=== PATIENT | male | born 1965 | race Two or more races ===

== ENCOUNTER 2019-10-29 08:00 | Inpatient (IN) | payer OTHER, SELFPAY ==
[2019-10-29] VITALS (7 sets, daily range): BP systolic 121–140; BP diastolic 74–95
[~2019-10-29] VITALS: Ht 160 cm; Wt 75.1 kg
[2019-10-29 08:59] LABS: Albumin 2.7 g/dL (3.4-5.0); Calcium 9.1 mg/dL (8.5-10.1); Potassium 5.3 mmol/L (3.5-5.1)
[2019-10-29] MEDS ORDERED: cefTRIAXone 1GM/50ML D5W 50 ML IV ONE (09:00)
[2019-10-29] MEDS ORDERED: AZITHROMYCIN 500MG/ 250ML 250 ML IV ONE (09:00)
[2019-10-29 09:02] LABS: BUN/Creatinine Ratio 15.6; Bilirubin, Total 0.6 mg/dL (0.2-1.0); Total Protein 8.6 g/dL (6.4-8.2)
[2019-10-29 09:14] LABS: Basophils # (auto) 0 10 ^3/uL (0-0.2); Basophils % (auto) 0.3 % (0.0-2.0); Eosinophils # (auto) 0.1 10 ^3/uL (0-0.8); Hematocrit 37.7 % (41.0-53.0); Hemoglobin 12.8 g/dL (13.5-17.5); Lymphocytes # (auto) 0.5 10 ^3/uL (0.4-5.4); Lymphocytes % (auto) 9.9 % (10.0-50.0); Mean Corpuscular Hemoglobin 29.2 pg (28.0-32.0); Mean Corpuscular Volume 86.1 fL (80.0-100.0); Monocytes # (auto) 0.4 10 ^3/uL (0-1.3); Monocytes % (auto) 8.3 % (0.0-12.0); Neutrophils # (auto) 4.3 10 ^3/uL (1.6-8.6); Neutrophils % (auto) 80.5 % (37.0-80.0); Nucleated Red Blood Cells % 0.2 %; Platelet Count (auto) 300 10^3/uL (140-450); Red Blood Cells 4.38 10^6/uL (4.5-5.90); White Blood Cell 5.3 10^3/uL (4.4-10.8)
[2019-10-29] MEDS ORDERED: ASCORBIC ACID 500 MG TAB PO ONE (09:15)
[2019-10-29] MEDS ORDERED: SODIUM CHLORIDE 0.9% 1,000 ML IV ONE (09:15)
[2019-10-29] MEDS ORDERED: ZINC SULFATE 220mg CAP or TAB PO ONE (09:15)
[2019-10-29] MEDS ORDERED: ACETAMINOPHEN 500 MG TAB PO PRN ×2 (10:00)
[2019-10-29] MEDS ORDERED: ENALAPRILAT 1.25 MG/ML-1ML VIAL IV PRN (10:00)
[2019-10-29] MEDS ORDERED: DEXTROSE (50%) 50ML SYRG IV PRN (10:00)
[2019-10-29] MEDS ORDERED: HYDROcodone-ACET 5/325MG TAB PO PRN (10:00)
[2019-10-29] MEDS ORDERED: ENOXAPARIN SOD 40 MG/0.4 ML SYRINGE SC SCH (10:00)
[2019-10-29] MEDS ORDERED: NITROGLYCERIN 0.4 MG SL TAB SL PRN (10:00)
[2019-10-29] MEDS ORDERED: SODIUM ZIRCONIUM CYCL 10 GM PAK PO ONE (10:00)
[2019-10-29] MEDS: ASCORBIC ACID 1,000 MG TAB PO SCH (10:00)
[2019-10-29] MEDS ORDERED: ONDANSETRON HCL 4 MG/2 ML VIAL IV PRN (10:00)
[2019-10-29] MEDS ORDERED: MORPHINE SULF INJ 2 MG/ML SYRINGE 1ML IV PRN ×2 (10:00)
[2019-10-29 10:19] LABS: Magnesium 2.3 mg/dL (1.6-2.6)
[2019-10-29] MEDS ORDERED: LORazepam 2MG/ML-1ML VIAL IV ONE (10:30)
[2019-10-29 10:38] LABS: CRP High Sensitivity > 19 mg/dL (< 0.3)
[2019-10-29] MEDS: CHOLECALCIFEROL (VITD3) 1,000IU=25mCg TAB PO SCH (10:40)
[2019-10-29] MEDS: FAMOTIDINE 20 MG TAB PO SCH (10:40)
[2019-10-29] MEDS: amLODIPine BESYLATE 5 MG TAB PO SCH (10:40)
[2019-10-29] MEDS: AZITHROMYCIN 500MG/ 250ML 250 ML IV SCH (11:04)
[2019-10-29] MEDS: ZINC SULFATE 220mg CAP or TAB PO SCH (11:04)
[2019-10-29] MEDS ORDERED: hydrALAZINE HCL 20 MG/ML VL IV PRN (11:15)
[2019-10-29] MEDS: ACCU-CHEK COMFORT CURVE STRIP VI SCH ×3 (11:51→22:27)
[2019-10-29] MEDS: InsuLIN REG 1unit/0.01ml Soln (100units/ml) SC SCH ×3 (11:53→22:27)
[2019-10-29 13:54] LABS: Urine Bacteria MANY /hpf (None Seen); Urine Blood Negative /uL (Negative); Urine Mucus FEW (None Seen); Urine Specific Gravity 1.011 (1.001-1.035); Urine WBC 22 /hpf (0 - 3)
[2019-10-29] MEDS ORDERED: ALBUTEROL SULF HFA 90MCG INH 200DOSE IN SCH (14:00)
[2019-10-29] MEDS ORDERED: FUROSEMIDE 40 MG/4 ML VIAL ONE (14:38)
[2019-10-29] MEDS ORDERED: FUROSEMIDE 20 MG/2 ML VIAL IV ONE (14:45)
[2019-10-29] MEDS: ALBUTEROL SULF HFA 90MCG INH 200DOSE IN SCH ×2 (15:00→22:56)
[2019-10-29] MEDS: PIPERACILLIN-TAZOB 3.375GM 100 ML IV SCH ×2 (15:11→23:44)
[2019-10-29] MEDS: FUROSEMIDE 20 MG/2 ML VIAL IV SCH (17:51)
[2019-10-29] MEDS ORDERED: TOCILIZUMAB 400 MG in SODIUM CHL 0.9% 80 ML IV ONE (19:30)
[2019-10-29] MEDS: ENOXAPARIN SOD 80 MG/0.8ML SYRINGE SC SCH (20:00)
[2019-10-29] MEDS: methylPREDNISolone SOD SUCC 40 MG/ML VL IV SCH (22:04)
[2019-10-30] VITALS (12 sets, daily range): BP systolic 116–137; BP diastolic 68–101
[2019-10-30] MEDS ORDERED: METF-371 PO (00:37)
[2019-10-30] MEDS ORDERED: VER40T PO (00:43)
[2019-10-30] MEDS ORDERED: GLIM4TAB42 PO (00:43)
[2019-10-30] MEDS ORDERED: TAMS0.4C36 PO (00:43)
[2019-10-30] MEDS ORDERED: TRAM50TA2 PO (00:43)
[2019-10-30 03:39] LABS: Basophils # (auto) 0 10 ^3/uL (0-0.2); Basophils % (auto) 0.2 % (0.0-2.0); Eosinophils # (auto) 0 10 ^3/uL (0-0.8); Eosinophils % (auto) 0.2 % (0.0-7.0); Hematocrit 34.8 % (41.0-53.0); Hemoglobin 11.8 g/dL (13.5-17.5); Lymphocytes # (auto) 0.4 10 ^3/uL (0.4-5.4); Lymphocytes % (auto) 13.3 % (10.0-50.0); Mean Corpuscular Hemoglobin 29.4 pg (28.0-32.0); Mean Corpuscular Volume 86.7 fL (80.0-100.0); Monocytes # (auto) 0.2 10 ^3/uL (0-1.3); Monocytes % (auto) 5.6 % (0.0-12.0); Neutrophils # (auto) 2.5 10 ^3/uL (1.6-8.6); Neutrophils % (auto) 80.7 % (37.0-80.0); Platelet Count (auto) 310 10^3/uL (140-450); Red Blood Cells 4.02 10^6/uL (4.5-5.90); Red Cell Distribution Width 13.7 % (11.8-14.3); White Blood Cell 3.1 10^3/uL (4.4-10.8)
[2019-10-30 03:59] LABS: Albumin 2.3 g/dL (3.4-5.0); BUN/Creatinine Ratio 19.1; Calcium 8.6 mg/dL (8.5-10.1); Potassium 4.8 mmol/L (3.5-5.1)
[2019-10-30 04:06] LABS: Bilirubin, Total 0.4 mg/dL (0.2-1.0); Total Protein 7.8 g/dL (6.4-8.2)
[2019-10-30] MEDS: FUROSEMIDE 20 MG/2 ML VIAL IV SCH (06:00)
[2019-10-30] MEDS: PIPERACILLIN-TAZOB 3.375GM 100 ML IV SCH ×3 (06:00→18:27)
[2019-10-30] MEDS: ALBUTEROL SULF HFA 90MCG INH 200DOSE IN SCH ×3 (06:35→21:38)
[2019-10-30] MEDS: ACCU-CHEK COMFORT CURVE STRIP VI SCH ×4 (06:53→22:13)
[2019-10-30] MEDS: InsuLIN REG 1unit/0.01ml Soln (100units/ml) SC SCH ×4 (06:53→22:13)
[2019-10-30] MEDS ORDERED: cefTRIAXone 1GM/50ML D5W 50 ML IV SCH (09:00)
[2019-10-30] MEDS: ENOXAPARIN SOD 80 MG/0.8ML SYRINGE SC SCH ×2 (09:32→20:13)
[2019-10-30] MEDS: ZINC SULFATE 220mg CAP or TAB PO SCH (09:33)
[2019-10-30] MEDS: FAMOTIDINE 20 MG TAB PO SCH (09:33)
[2019-10-30] MEDS: methylPREDNISolone SOD SUCC 40 MG/ML VL IV SCH ×2 (09:33→22:11)
[2019-10-30] MEDS: AZITHROMYCIN 500MG/ 250ML 250 ML IV SCH (09:33)
[2019-10-30] MEDS: amLODIPine BESYLATE 5 MG TAB PO SCH (09:33)
[2019-10-30] MEDS: CHOLECALCIFEROL (VITD3) 1,000IU=25mCg TAB PO SCH (09:34)
[2019-10-30] MEDS: ASCORBIC ACID 1,000 MG TAB PO SCH (09:34)
[2019-10-30] MEDS ORDERED: TOCILIZUMAB 400 MG IV ONE (11:30)
[2019-10-30] MEDS ORDERED: FUROSEMIDE 100 MG/10ML VIAL IV ONE (11:45)
[2019-10-30] MEDS ORDERED: POTASSIUM CHL 20 Meq TABLET PO ONE (11:45)
[2019-10-30] MEDS ORDERED: TOCILIZUMAB IV ONE (13:00)
[2019-10-30] MEDS ORDERED: SODIUM CHL 0.9% IV ONE (13:00)
[2019-10-30] MEDS: FUROSEMIDE 100 MG/10ML VIAL IV SCH (18:27)
[2019-10-30] MEDS: INSULIN LANTUS (GLARGINE) 1 /0.01ml (100units/ml) SC SCH (22:13)
[2019-10-31] VITALS (11 sets, daily range): BP systolic 119–145; BP diastolic 74–87
[2019-10-31 03:20] LABS: Basophils # (auto) 0 10 ^3/uL (0-0.2); Basophils % (auto) 0.5 % (0.0-2.0); Eosinophils # (auto) 0 10 ^3/uL (0-0.8); Hematocrit 35.5 % (41.0-53.0); Hemoglobin 12.2 g/dL (13.5-17.5); Lymphocytes # (auto) 0.5 10 ^3/uL (0.4-5.4); Lymphocytes % (auto) 7.9 % (10.0-50.0); Mean Corpuscular Hemoglobin 29.6 pg (28.0-32.0); Mean Corpuscular Hgb Conc. 34.3 g/dL (32.0-36.0); Mean Corpuscular Volume 86.3 fL (80.0-100.0); Monocytes # (auto) 0.5 10 ^3/uL (0-1.3); Monocytes % (auto) 8.1 % (0.0-12.0); Neutrophils # (auto) 5.6 10 ^3/uL (1.6-8.6); Neutrophils % (auto) 83.5 % (37.0-80.0); Nucleated Red Blood Cells % 0.1 %; Platelet Count (auto) 441 10^3/uL (140-450); Red Blood Cells 4.12 10^6/uL (4.5-5.90); Red Cell Distribution Width 13.8 % (11.8-14.3); White Blood Cell 6.7 10^3/uL (4.4-10.8)
[2019-10-31 03:35] LABS: BUN/Creatinine Ratio 26.1; Calcium 8.8 mg/dL (8.5-10.1); Potassium 4.7 mmol/L (3.5-5.1)
[2019-10-31] MEDS: PIPERACILLIN-TAZOB 3.375GM 100 ML IV SCH ×4 (05:59→18:41)
[2019-10-31] MEDS: FUROSEMIDE 100 MG/10ML VIAL IV SCH ×2 (06:00→18:41)
[2019-10-31] MEDS: InsuLIN REG 1unit/0.01ml Soln (100units/ml) SC SCH ×4 (06:00→21:11)
[2019-10-31] MEDS: ACCU-CHEK COMFORT CURVE STRIP VI SCH ×7 (06:02→21:12)
[2019-10-31] MEDS: ALBUTEROL SULF HFA 90MCG INH 200DOSE IN SCH ×3 (06:23→22:01)
[2019-10-31] MEDS: ENOXAPARIN SOD 80 MG/0.8ML SYRINGE SC SCH ×2 (08:30→20:00)
[2019-10-31] MEDS: methylPREDNISolone SOD SUCC 40 MG/ML VL IV SCH ×2 (09:35→21:10)
[2019-10-31] MEDS: AZITHROMYCIN 500MG/ 250ML 250 ML IV SCH (09:35)
[2019-10-31] MEDS: ZINC SULFATE 220mg CAP or TAB PO SCH (09:35)
[2019-10-31] MEDS: CHOLECALCIFEROL (VITD3) 1,000IU=25mCg TAB PO SCH (09:35)
[2019-10-31] MEDS: FAMOTIDINE 20 MG TAB PO SCH (09:35)
[2019-10-31] MEDS: ASCORBIC ACID 1,000 MG TAB PO SCH (09:35)
[2019-10-31] MEDS ORDERED: DEXTROSE (50%) 50ML SYRG IV PRN (11:15)
[2019-10-31] MEDS ORDERED: FUROSEMIDE 20 MG/2 ML VIAL IV ONE (11:15)
[2019-10-31] MEDS ORDERED: FUROSEMIDE 100 MG/10ML VIAL IV ONE (11:30)
[2019-10-31] MEDS: Glucerna Carbsteady SHAKE Vanilla 8oz PO SCH ×2 (12:00→18:00)
[2019-10-31] MEDS: INSULIN LANTUS (GLARGINE) 1 /0.01ml (100units/ml) SC SCH (21:10)
[2019-11-01] VITALS: BP 120/74
[2019-11-01 04:00] VITALS: BP 133/78
[2019-11-01 05:10] LABS: Potassium 4.9 mmol/L (3.5-5.1)
[2019-11-01 05:15] LABS: BUN/Creatinine Ratio 28.7
[2019-11-01] MEDS: FUROSEMIDE 100 MG/10ML VIAL IV SCH (06:00)
[2019-11-01] MEDS: PIPERACILLIN-TAZOB 3.375GM 100 ML IV SCH ×5 (06:14→22:47)
[2019-11-01] MEDS: InsuLIN REG 1unit/0.01ml Soln (100units/ml) SC SCH ×4 (06:34→22:46)
[2019-11-01] MEDS: ACCU-CHEK COMFORT CURVE STRIP VI SCH ×6 (06:46→22:27)
[2019-11-01] MEDS: ALBUTEROL SULF HFA 90MCG INH 200DOSE IN SCH ×3 (06:56→22:26)
[2019-11-01] MEDS: ENOXAPARIN SOD 80 MG/0.8ML SYRINGE SC SCH (08:00)
[2019-11-01] MEDS: Glucerna Carbsteady SHAKE Vanilla 8oz PO SCH ×3 (08:51→17:38)
[2019-11-01] MEDS: methylPREDNISolone SOD SUCC 40 MG/ML VL IV SCH ×2 (09:04→22:26)
[2019-11-01] MEDS: FLORASTOR (S. BOULARDII) 250 MG CAP PO SCH (09:05)
[2019-11-01] MEDS: ZINC SULFATE 220mg CAP or TAB PO SCH (09:05)
[2019-11-01] MEDS: FAMOTIDINE 20 MG TAB PO SCH (09:05)
[2019-11-01] MEDS: AZITHROMYCIN 500MG/ 250ML 250 ML IV SCH (09:05)
[2019-11-01] MEDS: ASCORBIC ACID 1,000 MG TAB PO SCH (09:06)
[2019-11-01] MEDS: CHOLECALCIFEROL (VITD3) 1,000IU=25mCg TAB PO SCH (09:06)
[2019-11-01 12:00] VITALS: BP 100/73
[2019-11-01 16:00] VITALS: BP 125/76
[2019-11-01 22:00] VITALS: BP 123/79
[2019-11-01] MEDS ORDERED: INSULIN LANTUS (GLARGINE) 1 /0.01ml (100units/ml) SC SCH (22:00)
[2019-11-02 06:00] VITALS: BP 113/84
[2019-11-02] MEDS: ACCU-CHEK COMFORT CURVE STRIP VI SCH ×4 (06:32→22:20)
[2019-11-02] MEDS: PIPERACILLIN-TAZOB 3.375GM 100 ML IV SCH ×3 (06:32→18:20)
[2019-11-02] MEDS: ALBUTEROL SULF HFA 90MCG INH 200DOSE IN SCH ×3 (06:32→22:20)
[2019-11-02] MEDS: InsuLIN REG 1unit/0.01ml Soln (100units/ml) SC SCH ×4 (06:53→22:31)
[2019-11-02] MEDS: Glucerna Carbsteady SHAKE Vanilla 8oz PO SCH ×3 (07:39→18:20)
[2019-11-02 08:00] VITALS: BP 122/93
[2019-11-02] MEDS: FUROSEMIDE 20 MG/2 ML VIAL IV SCH (09:27)
[2019-11-02] MEDS: methylPREDNISolone SOD SUCC 40 MG/ML VL IV SCH ×2 (09:27→22:20)
[2019-11-02] MEDS: AZITHROMYCIN 500MG/ 250ML 250 ML IV SCH (09:28)
[2019-11-02] MEDS: ENOXAPARIN SOD 40 MG/0.4 ML SYRINGE SC SCH (09:28)
[2019-11-02] MEDS: CHOLECALCIFEROL (VITD3) 1,000IU=25mCg TAB PO SCH (09:29)
[2019-11-02] MEDS: FAMOTIDINE 20 MG TAB PO SCH (09:29)
[2019-11-02] MEDS: ASCORBIC ACID 1,000 MG TAB PO SCH (09:29)
[2019-11-02] MEDS: ZINC SULFATE 220mg CAP or TAB PO SCH (09:30)
[2019-11-02] MEDS: FLORASTOR (S. BOULARDII) 250 MG CAP PO SCH (09:30)
[2019-11-02 12:00] VITALS: BP 119/86
[2019-11-02 16:59] VITALS: BP 116/77
[2019-11-02 22:00] VITALS: BP 123/77
[2019-11-02] MEDS ORDERED: INSULIN LANTUS (GLARGINE) 1 /0.01ml (100units/ml) SC SCH (22:00)
[2019-11-03] MEDS: PIPERACILLIN-TAZOB 3.375GM 100 ML IV SCH ×5 (00:17→23:49)
[2019-11-03] MEDS: ACCU-CHEK COMFORT CURVE STRIP VI SCH ×5 (06:16→23:50)
[2019-11-03] MEDS: ALBUTEROL SULF HFA 90MCG INH 200DOSE IN SCH ×3 (06:16→20:52)
[2019-11-03] MEDS: InsuLIN REG 1unit/0.01ml Soln (100units/ml) SC SCH ×4 (06:18→21:19)
[2019-11-03 07:18] LABS: Potassium 5.4 mmol/L (3.5-5.1)
[2019-11-03 07:26] LABS: Albumin 2.8 g/dL (3.4-5.0); BUN/Creatinine Ratio 31.1; Calcium 9.4 mg/dL (8.5-10.1)
[2019-11-03 07:28] LABS: Bilirubin, Total 0.3 mg/dL (0.2-1.0); Total Protein 7.8 g/dL (6.4-8.2)
[2019-11-03 08:28] VITALS: BP 106/73
[2019-11-03] MEDS: Glucerna Carbsteady SHAKE Vanilla 8oz PO SCH ×3 (10:39→18:25)
[2019-11-03] MEDS: methylPREDNISolone SOD SUCC 40 MG/ML VL IV SCH (10:39)
[2019-11-03] MEDS: ENOXAPARIN SOD 40 MG/0.4 ML SYRINGE SC SCH (10:39)
[2019-11-03] MEDS: ASCORBIC ACID 1,000 MG TAB PO SCH (10:40)
[2019-11-03] MEDS: CHOLECALCIFEROL (VITD3) 1,000IU=25mCg TAB PO SCH (10:40)
[2019-11-03] MEDS: FUROSEMIDE 20 MG/2 ML VIAL IV SCH (10:40)
[2019-11-03] MEDS: ZINC SULFATE 220mg CAP or TAB PO SCH (10:41)
[2019-11-03] MEDS: FAMOTIDINE 20 MG TAB PO SCH (10:41)
[2019-11-03] MEDS: FLORASTOR (S. BOULARDII) 250 MG CAP PO SCH (10:41)
[2019-11-03 10:53] LABS: Basophils # (auto) 0 10 ^3/uL (0-0.2); Basophils % (auto) 0.1 % (0.0-2.0); Eosinophils # (auto) 0 10 ^3/uL (0-0.8); Eosinophils % (auto) 0.2 % (0.0-7.0); Hematocrit 39.9 % (41.0-53.0); Hemoglobin 13.5 g/dL (13.5-17.5); Lymphocytes # (auto) 1.3 10 ^3/uL (0.4-5.4); Lymphocytes % (auto) 14.3 % (10.0-50.0); Mean Corpuscular Hemoglobin 29.2 pg (28.0-32.0); Mean Corpuscular Hgb Conc. 33.7 g/dL (32.0-36.0); Mean Corpuscular Volume 86.6 fL (80.0-100.0); Monocytes # (auto) 0.7 10 ^3/uL (0-1.3); Neutrophils # (auto) 6.8 10 ^3/uL (1.6-8.6); Neutrophils % (auto) 77.4 % (37.0-80.0); Nucleated Red Blood Cells % 0.1 %; Platelet Count (auto) 497 10^3/uL (140-450); Red Blood Cells 4.61 10^6/uL (4.5-5.90); Red Cell Distribution Width 13.4 % (11.8-14.3); White Blood Cell 8.8 10^3/uL (4.4-10.8)
[2019-11-03] MEDS ORDERED: DEXTROSE (50%) 50ML SYRG IV ONE (11:00)
[2019-11-03] MEDS ORDERED: SODIUM ZIRCONIUM CYCL 10 GM PAK PO ONE (11:00)
[2019-11-03] MEDS ORDERED: InsuLIN REG 1unit/0.01ml Soln (100units/ml) IV ONE ×3 (11:00→18:30)
[2019-11-03 12:30] VITALS: BP 119/78
[2019-11-03 18:20] VITALS: BP 129/82
[2019-11-03] MEDS ORDERED: DEXTROSE (50%) 50ML SYRG IV PRN (19:45)
[2019-11-03 20:00] VITALS: BP 136/55
[2019-11-03] MEDS: INSULIN LANTUS (GLARGINE) 1 /0.01ml (100units/ml) SC SCH (21:20)
[2019-11-04] VITALS: BP 130/93
[2019-11-04] MEDS: InsuLIN REG 1unit/0.01ml Soln (100units/ml) SC SCH ×6 (00:26→22:13)
[2019-11-04] MEDS: ALBUTEROL SULF HFA 90MCG INH 200DOSE IN SCH ×3 (06:22→22:01)
[2019-11-04] MEDS: ACCU-CHEK COMFORT CURVE STRIP VI SCH ×5 (06:22→22:13)
[2019-11-04] MEDS: PIPERACILLIN-TAZOB 3.375GM 100 ML IV SCH (06:22)
[2019-11-04 06:30] LABS: Basophils # (auto) 0 10 ^3/uL (0-0.2); Basophils % (auto) 0.2 % (0.0-2.0); Eosinophils # (auto) 0.1 10 ^3/uL (0-0.8); Eosinophils % (auto) 0.8 % (0.0-7.0); Hematocrit 39.5 % (41.0-53.0); Hemoglobin 13.6 g/dL (13.5-17.5); Lymphocytes # (auto) 1.9 10 ^3/uL (0.4-5.4); Lymphocytes % (auto) 21.3 % (10.0-50.0); Mean Corpuscular Hemoglobin 29.5 pg (28.0-32.0); Mean Corpuscular Hgb Conc. 34.5 g/dL (32.0-36.0); Mean Corpuscular Volume 85.5 fL (80.0-100.0); Monocytes # (auto) 0.7 10 ^3/uL (0-1.3); Monocytes % (auto) 7.4 % (0.0-12.0); Neutrophils # (auto) 6.2 10 ^3/uL (1.6-8.6); Neutrophils % (auto) 70.3 % (37.0-80.0); Nucleated Red Blood Cells % 0.1 %; Platelet Count (auto) 466 10^3/uL (140-450); Red Blood Cells 4.63 10^6/uL (4.5-5.90); Red Cell Distribution Width 13.6 % (11.8-14.3); White Blood Cell 8.8 10^3/uL (4.4-10.8)
[2019-11-04 06:47] LABS: Albumin 2.9 g/dL (3.4-5.0); Calcium 8.9 mg/dL (8.5-10.1)
[2019-11-04 06:50] LABS: BUN/Creatinine Ratio 36.5; Bilirubin, Total 0.3 mg/dL (0.2-1.0); Total Protein 7.6 g/dL (6.4-8.2)
[2019-11-04] MEDS: Glucerna Carbsteady SHAKE Vanilla 8oz PO SCH ×3 (08:00→18:21)
[2019-11-04 09:00] VITALS: BP 108/71
[2019-11-04 09:39] VITALS: BP 108/71
[2019-11-04] MEDS: ENOXAPARIN SOD 40 MG/0.4 ML SYRINGE SC SCH (09:55)
[2019-11-04] MEDS: FLORASTOR (S. BOULARDII) 250 MG CAP PO SCH (09:55)
[2019-11-04] MEDS: FAMOTIDINE 20 MG TAB PO SCH (09:55)
[2019-11-04] MEDS: CHOLECALCIFEROL (VITD3) 1,000IU=25mCg TAB PO SCH (09:55)
[2019-11-04] MEDS: ZINC SULFATE 220mg CAP or TAB PO SCH (09:55)
[2019-11-04] MEDS: ASCORBIC ACID 1,000 MG TAB PO SCH (09:55)
[2019-11-04] MEDS ORDERED: methylPREDNISolone SOD SUCC 40 MG/ML VL IV SCH (10:00)
[2019-11-04 13:45] VITALS: BP_SYST 139; BP_SYST 154; BP_DIAS 61; BP_DIAS 93
[2019-11-04 20:00] VITALS: BP 121/91
[2019-11-04 22:00] VITALS: BP 130/84
[2019-11-04] MEDS: INSULIN LANTUS (GLARGINE) 1 /0.01ml (100units/ml) SC SCH (22:13)
[2019-11-05 02:00] VITALS: BP 112/77
[2019-11-05] MEDS: InsuLIN REG 1unit/0.01ml Soln (100units/ml) SC SCH ×3 (06:26→17:00)
[2019-11-05] MEDS: ALBUTEROL SULF HFA 90MCG INH 200DOSE IN SCH ×2 (06:27→14:29)
[2019-11-05] MEDS: ACCU-CHEK COMFORT CURVE STRIP VI SCH ×3 (06:27→17:00)
[2019-11-05 08:00] VITALS: BP 112/88
[2019-11-05] MEDS: Glucerna Carbsteady SHAKE Vanilla 8oz PO SCH ×2 (08:10→11:55)
[2019-11-05] MEDS: ZINC SULFATE 220mg CAP or TAB PO SCH (09:01)
[2019-11-05] MEDS: FAMOTIDINE 20 MG TAB PO SCH (09:02)
[2019-11-05] MEDS: CHOLECALCIFEROL (VITD3) 1,000IU=25mCg TAB PO SCH (09:02)
[2019-11-05] MEDS: ASCORBIC ACID 1,000 MG TAB PO SCH (09:02)
[2019-11-05] MEDS: ENOXAPARIN SOD 40 MG/0.4 ML SYRINGE SC SCH (09:02)
[2019-11-05] MEDS ORDERED: predniSONE 20 MG TAB PO SCH (10:00)
[2019-11-05 12:00] VITALS: BP 139/83
[2019-11-05 15:40] VITALS: BP 139/83
== END 2019-11-05 17:35 | disposition home or self-care (01) | DRG 177 ==
LOC: ER 08:00 → EDBD 08:00 → TELE 08:01 → ICU WEST 11:24 → DOU IN ICU 11:44 → TELE-EAST 11-01 12:31
PROVIDERS: ADMIT Nurse Practitioner Acute Care; ATTEND Internal Medicine
DX: U07.1 COVID-19 (principal); J96.01 Acute respiratory failure with hypoxia; J12.89 Other viral pneumonia; E87.1 Hypo-osmolality and hyponatremia; D68.59 Other primary thrombophilia; I10 Essential (primary) hypertension; E87.5 Hyperkalemia; E66.9 Obesity, unspecified; E11.9 Type 2 diabetes mellitus without complications; I25.10 Atherosclerotic heart disease of native coronary artery without angina pectoris; Z79.84 Long term (current) use of oral hypoglycemic drugs
CPT/HCPCS: 36415; 36600; 71045; 80048; 80053; 81001; 82728; 82805; 82962; 83036; 83605; 83615; 83735; 84443; 85025; 85379; 86141; 87040; 87070; 87804; 87880; 94640; 96365; 96368; 96372; 96375; 99291; G0378; J0696; J1815; J2543

== ENCOUNTER 2024-05-08 06:55 | Day surgery (SDC) | payer MEDICAID ==
[2024-05-07 09:08] LABS: Basophils # (auto) 0.1 10 ^3/uL (0-0.2); Basophils % (auto) 1.1 % (0.0-2.0); Eosinophils # (auto) 0.2 10 ^3/uL (0-0.8); Eosinophils % (auto) 4.3 % (0.0-7.0); Hemoglobin 13.7 g/dL (13.5-17.5); Lymphocytes # (auto) 0.8 10 ^3/uL (0.4-5.4); Lymphocytes % (auto) 17.6 % (10.0-50.0); Mean Corpuscular Hemoglobin 29.4 pg (28.0-32.0); Mean Corpuscular Hgb Conc. 33.5 g/dL (32.0-36.0); Mean Corpuscular Volume 87.7 fL (80.0-100.0); Monocytes # (auto) 0.3 10 ^3/uL (0-1.3); Monocytes % (auto) 6.4 % (0.0-12.0); Neutrophils # (auto) 3.3 10 ^3/uL (1.6-8.6); Neutrophils % (auto) 70.6 % (37.0-80.0); Platelet Count (auto) 149 10^3/uL (140-450); Red Blood Cells 4.67 10^6/uL (4.5-5.90); Red Cell Distribution Width 13.5 % (11.8-14.3); White Blood Cell 4.7 10^3/uL (4.4-10.8)
[2024-05-07 09:28] LABS: INR 1.03 (0.9-1.15); Partial Thromboplastin Time 27.7 SEC (24.5-34.5); Prothrombin Time 10.9 sec (9.3-11.8)
[2024-05-07 09:43] LABS: Urine Bacteria MANY /hpf (None Seen); Urine Blood TRACE /uL (Negative); Urine Clarity Turbid (Clear); Urine Color Colorless (Yellow); Urine Mucus FEW (None Seen); Urine Protein, UAD 1+ (Negative); Urine Specific Gravity 1.019 (1.001-1.035); Urine Urobilinogen Normal (Negative); Urine WBC 98 /hpf (0 - 3); Urine pH 5.5 (5.0-9.0)
[2024-05-07 10:25] LABS: Alanine Aminotransferase 24 U/L (7-40); Albumin 4.5 g/dL (3.2-4.8); Alkaline Phosphatase 107 U/L (46-116); Anion Gap 4 (5-15); Aspartate Aminotransferase 13 U/L (13-40); Blood Urea Nitrogen 16 mg/dL (9-23); Calcium 9.8 mg/dL (8.7-10.4); Carbon Dioxide 27 mmol/L (20-31); Chloride 105 mmol/L (98-107); Glucose 247 mg/dL (74-106); Potassium 4.5 mmol/L (3.5-5.1); Sodium 136 mmol/L (136-145)
[2024-05-07 10:26] LABS: Bilirubin, Total 0.6 mg/dL (0.2-1.0); Total Protein 7.6 g/dL (5.7-8.2)
[~2024-05-08] VITALS: Ht 162.6 cm; Wt 80.3 kg
[~2024-05-08 06:55] MED LIST: BENA10TA93 PO; GLIM4TAB42 PO; METF-372 PO; TAMS0.4C39 PO
[2024-05-08] MEDS ORDERED: ceFAZolin 2 GM/D5W100ml 100 ML IV ONE (07:50)
[2024-05-08] MEDS ORDERED: MEPERIDINE HCL (50 MG/ML) 1 ML VIAL ONE (10:34)
[2024-05-08] MEDS ORDERED: fentaNYL CITRATE 100 MCG/2 ML VL ONE (10:34)
[2024-05-08] MEDS ORDERED: KETAMINE 50mg/ML 1ml syringe ONE (10:34)
[2024-05-08] MEDS ORDERED: MIDAZOLAM HCL 2MG/2ML 2ml VIAL (1mg/ml) ONE (10:34)
[2024-05-08] MEDS ORDERED: PROPOFOL 10 MG/ML 20 ML IV ONE (10:35)
[2024-05-08] MEDS ORDERED: GLYCOPYRROLATE 0.2 MG/ML 1ML VIAL ONE (10:35)
[2024-05-08] MEDS ORDERED: ONDANSETRON HCL 4 MG/2 ML VIAL ONE (10:35)
[2024-05-08] MEDS ORDERED: KETOROLAC TROMETH 30 MG/ML 1ML VIAL ONE (10:35)
[2024-05-08] MEDS ORDERED: LIDOCAINE 2% (LOCAL ANESTH.) PF 5ml SDV ONE (10:35)
[2024-05-08] MEDS ORDERED: DexAMETHasone SOD PHOS 10MG/1ML VIAL INJ ONE (10:35)
[2024-05-08] MEDS: BUPIVACAINE HCL 0.25% P/F 10 ML VIAL ONE (12:16)
[2024-05-08] MEDS: LIDOCAINE W/ EPINEPHRINE 1% 20ML VIAL ONE (12:16)
[2024-05-08 12:51] VITALS: PULSE 78; RESP 12; TEMP 98.2; O2SAT 99
[2024-05-08] MEDS ORDERED: ACE3T PO (12:54)
[2024-05-08] MEDS ORDERED: HYDROmorphone HCL 2 MG/ML VL/or syr IV PRN (13:00)
[2024-05-08] MEDS ORDERED: ONDANSETRON HCL 4 MG/2 ML VIAL IV ONE (13:00)
[2024-05-08] MEDS ORDERED: ACCU-CHEK COMFORT CURVE STRIP VI ONE (13:00)
[2024-05-08 14:30] VITALS: BP 129/78; PULSE 72; RESP 12; O2SAT 99
== END 2024-05-08 14:40 | disposition home or self-care (01) ==
LOC: SUR 06:55
PROVIDERS: ATTEND Surgery
DX: K40.90 Unilateral inguinal hernia, without obstruction or gangrene, not specified as recurrent (principal); E11.9 Type 2 diabetes mellitus without complications; I10 Essential (primary) hypertension; K21.9 Gastro-esophageal reflux disease without esophagitis; Z98.41 Cataract extraction status, right eye; Z98.42 Cataract extraction status, left eye; Z98.890 Other specified postprocedural states; Z79.899 Other long term (current) drug therapy; Z79.84 Long term (current) use of oral hypoglycemic drugs
CPT/HCPCS: 36415; 49505; 80053; 81001; 82962; 85025; 85610; 85730; 86850; 86900; 86901; 88304; J1100; J1885; J2003; J2175; J2250; J2405; J2704; J3010; J3490